=== PATIENT | female | born 1990 | race Two or more races ===

== ENCOUNTER 2021-02-23 11:11 | Day surgery (SDC) | payer OTHER ==
[2021-02-23] MEDS ORDERED: DOXYCYCLINE MO100 MG PO (13:41)
== END 2021-02-23 18:00 | disposition home or self-care (01) ==
LOC: CIR.AMB 11:11
PROVIDERS: ATTEND Obstetrics & Gynecology Maternal & Fetal Medicine
DX: O02.1 Missed abortion (principal); Z20.822 Contact with and (suspected) exposure to COVID-19

== ENCOUNTER 2021-11-17 01:36 | Outpatient (CLI) | payer OTHER ==
[~2021-11-17 01:36] MED LIST: DOXYCYCLINE MO100 MG PO
[2021-11-17] MEDS ORDERED: PRENATAL TABLE1 EAC1 PO (02:51)
== END 2021-11-17 01:56 | disposition home or self-care (01) ==
LOC: NST 01:36
PROVIDERS: ATTEND Obstetrics & Gynecology
DX: Z34.83 Encounter for supervision of other normal pregnancy, third trimester (principal)

== ENCOUNTER 2021-11-17 01:56 | Inpatient (IN) | payer OTHER ==
[~2021-11-17] VITALS: Ht 170.2 cm; Wt 100.7 kg
[2021-11-17] MEDS ORDERED: PRENATAL TABLE1 EAC1 PO (02:51)
== END 2021-11-19 14:50 | disposition home or self-care (01) | DRG 807 ==
LOC: OBS/DEL 01:56 → LDR 03:16 → OB/GYN 03:16
PROVIDERS: ADMIT Obstetrics & Gynecology; ATTEND Obstetrics & Gynecology
PROC: 10E0XZZ Delivery of Products of Conception, External Approach (ICD-10-PCS; principal; 2021-11-17)
PROC: 4A1HXCZ Monitoring of Products of Conception, Cardiac Rate, External Approach (ICD-10-PCS; 2021-11-17)
DX: O70.1 Second degree perineal laceration during delivery (principal); Z37.0 Single live birth; Z3A.37 37 weeks gestation of pregnancy; Z20.822 Contact with and (suspected) exposure to COVID-19